=== PATIENT | male | born 1960 | race Caucasian/White ===

== ENCOUNTER → 2019-04-13 | Outpatient (CLI) | payer BC ==
[~2019-04-13] MED LIST: ACETAMINOPHEN325 M1 PO; AMBIEN 10 MG TA10 MG PO; ASPIRIN EC325 M1 PO; ASPIRIN325 PO; CELEBREX 200 M200 M1 PO; COLACE 100 MG100 MG PO; DAZIDOX20 MG; DIPHENHYDRAMINE25 M3 PO; FINASTERIDE5 MG PO; FISH OIL 1,001000 M2; FLECAINIDE ACE100 MG PO; FOLBIC RF TABL1 EACH; HYDROCHLOROTH12.5 M1 PO; HYDROCODON-ACE1 EAC7 PO; METAMUCIL425 GM PO; MIRALAX255 GM; MOM PO; NEURONTIN 300300 M1 PO; OXYCODONE HCL15 MG PO; OXYCODONE HCL30 MG PO; OXYCODONE HCL5 M1; OXYCONTIN10 M1; PEPCID40 MG; RYTHMOL150 MG PO; RYTHMOL225 MG PO; SIMVASTATIN20 MG PO; SOTALOL80 MG PO; VITAMIN D400 UNI1 PO; VITAMINC500 PO; XANAX 0.25 MG0.25 MG PO; XARELTO10 M1 PO; ZOCOR 10 MG TAB10 MG PO
[2019-04-13 10:39] LABS: HEMATOCRIT 42.2 % (42.0-52.0); HEMOGLOBIN 14.7 gm/dL (14.0-18.0); MCH 28.9 pg (26.0-34.0); MCHC 34.8 g/dL (28.0-37.0); MCV 83.1 fL (80.0-100.0); MPV 7.6 fl. (7.2-11.1); RBC 5.07 mil/uL (4.50-6.00); WBC 5.2 thou/uL (4.0-11.0)
[2019-04-13 10:45] LABS: CALCIUM 9.3 mg/dL (8.5-10.1); POTASSIUM 4.3 mmol/L (3.5-5.1)
[2019-04-13 10:50] LABS: ALBUMIN 3.8 g/dL (3.4-5.0); TOTAL BILIRUBIN 0.5 mg/dL (<0.1-1.0); TOTAL PROTEIN 7.8 g/dL (6.4-8.2)
== END ==
LOC: M.LAB 10:00 → M.CT 11:00
PROVIDERS: Internal Medicine Cardiovascular Disease
DX: R91.1 Solitary pulmonary nodule (principal); K76.89 Other specified diseases of liver; I48.91 Unspecified atrial fibrillation

== ENCOUNTER → 2019-04-22 | Outpatient (CLI) | payer BC ==
[2019-04-22] VITALS (9 sets, daily range): BP systolic 97–138; BP diastolic 46–78
[~2019-04-22] MED LIST changes: +LEVOTHYROXINE50 MCG PO; +OXYCONTIN10 M1 PO
--- NOTE | 2019-04-22 15:38 | TEE ---
[place] [address] TRANSESOPHAGEAL ECHOCARDIOGRAM Name: BAM BOYLE Room: [facility]#: [id number] Admission: 04/22/19 Attend Phys: Nicholas Cherry, Discharge: Date of : 60 Date of Service: 04/22/19 1537 Report #: [id number] THIS REPORT FOR: //name// APPROVED REPORT Study performed: 04/22/2019 10:53:47 EXAM: Comprehensive 2D, Doppler, and color-flow Echocardiogram Status: routine HR: 56 bpm BP: 138/73 mmHg Rhythm: NSR Procedure After obtaining informed consent, patient underwent transesophageal echo in the [employer] [facility]. Type of Sedation : Conscious Sedation Sedation was administered by Elisha Sanchez RN. Sedation start time: 1102 Case end Time: 1115 Sedation was achieved intravenously with: Versed (5) Fentanyl (125) Transesophageal probe was inserted and advanced into esophagus without difficulty by Nicholas Cherry MD, [facility]. Echo enhancement indication: R/O Septal defect. Echo enhancement agent administered: Agitated Saline The MATEUS was performed with complications. Throughout the procedure, the blood pressure, pulse oximetry, cardiac rhythm, and rate were monitored. The patient tolerated the procedure without adverse effects. Recovery from conscious sedation was uneventful and vital signs were stable. Left Ventricle The left ventricle is normal size. There is normal LV segmental wall motion. There is normal left ventricular wall thickness. Left ventricular systolic function is normal. LVEF is 60-65%. Right Ventricle The right ventricle is normal size. The right ventricular systolic function is normal. Atria The left atrial appendage appears trabeculated. Cannot rule out thrombus. The left atrium size is normal. [place] [address] TRANSESOPHAGEAL ECHOCARDIOGRAM Name: TAMARBAM COURTNEY Room: [facility]#: [id number] Admission: 04/22/19 Attend Phys: Nicholas Cherry, Discharge: Date of : 60 Date of Service: 04/22/19 1537 Report #: [id number] intact without evidence of ASD or PFO. The right atrium size is normal. Aortic Valve The aortic valve is normal in structure. No aortic regurgitation is present. There is no aortic valvular stenosis. Mitral Valve The mitral valve is normal in structure. There is no mitral valve regurgitation noted. No evidence of mitral valve stenosis. Tricuspid Valve Tricuspid valve is not well visualized. Pulmonic Valve Pulmonic valve is not well visualized. Great Vessels The aortic root is normal in size. Pericardium There is no pericardial effusion. <Conclusion> The left ventricle is normal size. There is normal left ventricular wall thickness. Left ventricular systolic function is normal. LVEF is 60-65%. There is normal LV segmental wall motion. The left atrial appendage appears trabeculated. Cannot rule out thrombus. The left atrium size is normal. Interatrial septum is intact without evidence of ASD or PFO. <ELECTRONICALLY SIGNED> By: Nicholas Cherry MD, FACC 04/22/19 1537 1537 1537 Nichoals Cherry MD, FACC /INF
== END | disposition home or self-care (01) ==
LOC: M.CL 09:06
DX: I48.91 Unspecified atrial fibrillation (principal); Z79.01 Long term (current) use of anticoagulants; Z88.8 Allergy status to other drugs, medicaments and biological substances; Z79.82 Long term (current) use of aspirin; Z79.899 Other long term (current) drug therapy; Z79.891 Long term (current) use of opiate analgesic

== ENCOUNTER → 2019-06-15 | Outpatient (CLI) | payer BC ==
[2019-06-15] VITALS (10 sets, daily range): BP systolic 108–144; BP diastolic 35–97
[~2019-06-15] MED LIST changes: +PRADAXA150 MG PO
--- NOTE | 2019-06-15 16:21 | TEE ---
[place] [address] TRANSESOPHAGEAL ECHOCARDIOGRAM Name: TAMARBAM COURTNEY Room: [facility]#: [id number] Admission: 06/15/19 Attend Phys: Nicholas Cherry, Discharge: Date of : 60 Date of Service: 06/15/19 1621 Report #: [id number] THIS REPORT FOR: //name// APPROVED REPORT Study performed: 06/15/2019 11:05:49 EXAM: Transesophageal Echocardiogram Patient Location: Out-Patient BSA: 2.28 HR: 57 bpm BP: 125/67 mmHg Rhythm: NSR Other Information Study Quality: Good Indications Thrombus Echo Enhancing Agent Indication: Rule out Shunt Agent(s) / Amount(s) Used: Agitated Saline 10 cc Procedure After obtaining informed consent, patient underwent transesophageal echo in the [employer]. Type of Sedation : Conscious Sedation Sedation was administered by Akosua Maloney RN. Sedation start time: 11:50 Case end Time: 12:08 Sedation was achieved intravenously with: Versed (6) Fentanyl (150) Transesophageal probe was inserted and advanced into esophagus without difficulty by Nicholas Cherry MD, FACC. Echo enhancement indication: R/O Septal defect. Echo enhancement agent administered: Agitated Saline The MATEUS was performed without complications. Throughout the procedure, the blood pressure, pulse oximetry, cardiac rhythm, and rate were monitored. The patient tolerated the procedure without adverse effects. Recovery from conscious sedation was uneventful and vital signs were stable. Left Ventricle The left ventricle is normal size. There [place] [address] TRANSESOPHAGEAL ECHOCARDIOGRAM Name: BAM BOYLE Room: [facility]#: [id number] Admission: 06/15/19 Attend Phys: Nicholas Cherry, Discharge: Date of : 60 Date of Service: 06/15/19 1621 Report #: [id number] motion. There is normal left ventricular wall thickness. Left ventricular systolic function is normal. LVEF is 55-60%. Right Ventricle The right ventricle is normal size. The right ventricular systolic function is normal. Atria The left atrium size is normal. No thrombus is visualized in the left atrium or appendage. Interatrial septum is intact without evidence of ASD or PFO. The right atrium size is normal. Aortic Valve The aortic valve is normal in structure. No aortic regurgitation is present. There is no aortic valvular stenosis. Mitral Valve The mitral valve is normal in structure. Mild mitral regurgitation. No evidence of mitral valve stenosis. Tricuspid Valve The tricuspid valve is normal in structure. There is no tricuspid valve regurgitation noted. Pulmonic Valve The pulmonary valve is normal in structure. There is no pulmonic valvular regurgitation. Great Vessels The aortic root is normal in size. Pericardium There is no pericardial effusion. <Conclusion> The left ventricle is normal size. There is normal left ventricular wall thickness. Left ventricular systolic function is normal. LVEF is 55-60%. There is normal LV segmental wall motion. Interatrial septum is intact without evidence [place] [address] TRANSESOPHAGEAL ECHOCARDIOGRAM Name: BAM BOYLE Room: [facility]#: [id number] Admission: 06/15/19 Attend Phys: Nicholas Cherry, Discharge: Date of : 60 Date of Service: 06/15/191620 Report #: [id number] The left atrial appendage appears to have some trabeculations but no thrombus is visualized in the left atrium or appendage. <ELECTRONICALLY SIGNED> By: Nicholas Cherry MD, FACC 06/15/191620 20 20 Nicholas Cherry MD, FACC /INF
== END | disposition home or self-care (01) ==
LOC: M.CL 10:29
DX: I74.8 Embolism and thrombosis of other arteries (principal); I34.0 Nonrheumatic mitral (valve) insufficiency; Z88.8 Allergy status to other drugs, medicaments and biological substances; Z79.82 Long term (current) use of aspirin; Z79.899 Other long term (current) drug therapy; Z87.891 Personal history of nicotine dependence